=== PATIENT | male | born 1990 | race Caucasian/White ===

== ENCOUNTER 2016-03-26 16:14 | Inpatient (IN) ==
[2016-03-26] MEDS ORDERED: ONDANSETRON 4 MG/2 ML VIAL IV STA (17:03)
[2016-03-26] MEDS ORDERED: NITROGLYCERIN 2% OINT 1 INCH/GM PACK TOP STA (17:03)
[2016-03-26] MEDS ORDERED: ALUM/MAG/SIMETH/LIDO VISC 1:1 30 ML BOTTLE PO STA (17:03)
--- NOTE | 2016-03-26 17:07 | EKG Report ---
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
--- NOTE | 2016-03-26 17:14 | Emergency Department Note ---
Duane Bowers Brittany, am scribing for, and in the presence of, Chaz Prado MD 17:11. Johan Bowers Charles R, MD, personally performed the services described in this documentation, ascribed by Lissy Zepeda in my presence, and it is both accurate and complete 714 . Arrival - Arrival Chief Complaint: Chest Pain Stated Complaint: CHEST PRESSURE/SOB ED Nursing Triage Note: c/o CP and SOB that started today. also states that he has had some chills. +cough, congestion. 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 He states he has been hot and then cold, but denies any diaphoresis. He states this morning he started to cough up clear mucous which had blood in it. He states the chest pain goes into his left shoulder and down to the back of his neck. He denies any blood thinners at this time. Pt has no other complaints/pain in the ED at this time. Pt has a PMHx of HTN, NJ, asthma, and obstructive sleep apnea. Pt has had colonoscopy, tonsilectomy, and cholectstectomy. Pt has a family medical Hx of heart disease. Pt is a former smoker, but denies the use of alcohol and street drugs. Onset (ago): hour(s) (Started 2 hours RIB SAWYER) Consistency: constant Severity: moderate Allergies/Adverse Reactions: Allergies Allergy/AdvReac Type Severity Reaction Status Date / Time aspirin Allergy HIVES Verified 07/16/15 16:25 codeine Allergy HIVES Verified 07/16/15 16:25 Sulfa (Sulfonamide Allergy HIVES Verified 07/16/15 16:25 Antibiotics) Home Medications: Home Medications Medication Instructions Recorded Confirmed Type Tiotropium Inhalation [Spiriva 18 mcg INH Q4H PRN 03/26/16 03/26/16 History Handihaler] Review of System - Review of System 12 point system: reviewed and no additional remarkable complaints except as stated - Review of System Constitutional: Present: chills, fever. Absent: diaphoresis Respiratory: Present: cough Cardiovascular: Present: chest pain, dyspnea on exertion Gastrointestinal: Absent: nausea Medical,Surgical,& Family Hx - Medical History Cardio: History of: Hypertension, NJ (x 2) No history of: CAD Endocrine: No history of: Diabetes Mellitus (IDDM), Diabetes Mellitus (NIDDM), Thyroid Disorder Respiratory: History of: Asthma, Obstructive Sleep Apnea Renal: No history of: Renal Problems Gastrointestinal: No history of: Gastrointestinal Bleed, Liver Problems, GI Problems Musculoskeletal: No history of: Back/Neck Problems - Surgical History Cardiac Surgeries: Patient Denies: Cardiac Catheterization HEENT Surgeries: Surgical HX of: Tonsilectomy & Adenoidectomy Abdominal Surgeries: Surgical HX of: Cholecystectomy, Colonoscopy Patient denies: Appendectomy, EGD - Family History Family History: Reports;: Family Heart Disease - Social History Smoking Status: Former smoker Frequency of Alcohol Use: None Type of Drug Use: None Exam Vital Signs: Vital Signs Temperature 96.6 F L 03/26/16 17:59 Pulse Rate 97 H 03/26/16 17:59 Respiratory Rate 19 03/26/16 17:59 Blood Pressure 148/81 03/26/16 17:59 O2 Sat by Pulse Oximetry 98 03/26/16 17:31 - General General appearance: alert, in no apparent distress, obese (Morbidly obese) - Head Head exam: Present: atraumatic, normocephalic, normal inspection - Eye Eye exam: Present: normal appearance, PERRL, EOMI - ENT ENT exam: Present: normal exam, normal oropharynx, mucous membranes moist - Neck Neck exam: Present: normal inspection, full ROM, trachea midline. Absent: tenderness, thyromegaly - Chest Chest inspection: Present: normal inspection, symmetric chest wall rise. Absent : tenderness, rash, abscess - Respiratory Respiratory exam: Present: normal lung sounds bilaterally. Absent: prolonged expiratory phase, rales, respiratory distress, rhonchi, stridor, wheezes - Cardiovascular Cardiovascular exam: Present: tachycardia, normal heart sounds - Abdominal Exam Abdominal exam: Present: soft, normal bowel sounds. Absent: distention, tenderness, guarding, rebound, rigidity - Extremities Exam Extremities exam: Present: normal capillary refill, pedal edema (+1 pedal edema) . Absent: joint swelling, calf tenderness - Back Exam Back exam: Present: normal inspection, full ROM. Absent: tenderness, muscle spasm, rashes - Neurological Exam Neurological exam: Present: alert, oriented X3, CN II-XII intact, normal gait, reflexes normal. Absent: motor sensory deficit - Psychiatric Psychiatric exam: Present: normal affect, normal mood. Absent: depressed, agitated, anxious - Skin Skin exam: Present: warm, dry, intact, normal color. Absent: rash, cyanosis, diaphoresis, erythema Course - Consultations Consultation #1: Hospitalist will admit patient Time: 18:42 Results - Labs CBC & BMP: 03/26/16 17:10 03/26/16 17:10 Lab Results: I have reviewed the patients labs Disposition Clinical Impression: Chest pain, MACHELLE (obstructive sleep apnea), angina, Pickwickian syndrome Case discussed with: patient, patient's family Disposition: Still a Patient Condition: Stable Time of Disposition: 18:43
[2016-03-26] MEDS ORDERED: ONDANSETRON 4 MG/2 ML VIAL ONE (17:43)
[2016-03-26] MEDS ORDERED: NITROGLYCERIN 2% OINT 1 INCH/GM PACK TOP ONE (17:43)
[2016-03-26 17:44] LABS: Basophils % 0.3 % (0.0-0.8); Eosinophils # 0.2 10*3/uL (0.0-0.87); Eosinophils % 1.8 % (0.00-10.9); Hematocrit 43.3 VOL% (42.0-52.0); Immature Granulocytes % 0.3 %; Immature Granulocytes Absolute 0.04 #; Lymphocytes # 3.2 10*3/uL (1.4-4.0); Lymphocytes % 26.1 % (21.2-54.2); Mean Corpuscular HGB Conc 32.3 GM/DL (32-36); Mean Corpuscular Hemoglobin 27 PG (27-34); Mean Corpuscular Volume 83.3 FL (87-102); Mean Platelet Volume 9.3 FL (9.6-12.0); Monocytes # 0.9 10*3/uL (0.11-0.8); Monocytes % 7.1 % (1.7-12.7); Neutrophils % 64.4 % (38.7-73.9); Platelet Count 305 T/CUMM (130-400); Red Cell Distribution Width 13.8 % (9.3-17.3); White Blood Count 12.4 T/CUMM (4-12)
[2016-03-26 17:44] LABS: Apearance,Urine CLEAR (Clear); Bilirubin,Urine Negative (Negative); Blood, Urine Negative (Negative); Calcium Oxalate Crystals,Urine Moderate /HPF (Few); Glucose,Urine (UA) Negative (Negative); Ketones,Urine Negative (Negative); Mucus,Urine Occasional /LPF (Occasional); Nitrite,Urine Negative (Negative); Protein,Urine Negative; Urine Color Yellow (Yellow); Urine Specific Gravity 1.019 (1.001-1.035); Urine Urobilinogen < 2.0 EU/DL (0.2-1.0)
[2016-03-26] MEDS ORDERED: ALUM/MAG/SIMETH/LIDO VISC 1:1 30 ML BOTTLE PO ONE (17:44)
[2016-03-26 17:50] LABS: Barbiturates Screen,Urine Negative (Negative); Benzodiazepines Screen,Urine Negative (Negative); Cannabinoid Screen,Urine Negative (Negative); Opiate Screen,Urine Negative (Negative); Phencyclidine Screen,Urine Negative (Negative)
--- NOTE | 2016-03-26 17:52 | XRay Report ---
Portable chest Date:[03/26/2016] Clinical history: Chest pain Comparison: 05/04/2014 Technique: Portable AP sitting chest Findings: The heart is minimally enlarged. Minimal atelectasis at the lung bases. Stable mediastinum with no acute osseous findings. Impression: Minimal cardiomegaly with minimal atelectasis at the lung bases. PROCEDURE INTERPRETED AT [facility] DEPARTMENT OF RADIOLOGY Final Report Signed by: Dr. Rere Rogers
[2016-03-26 17:55] LABS: D-Dimer <= 0.5 MG/L FEU; PT Patient Result 10.2 SECS
[2016-03-26 18:04] LABS: Alanine Aminotransferase 23 U/L (16-61); Albumin 3.2 G/DL (3.4-5.0); Alkaline Phosphatase 120 U/L (45-117); Aspartate Amino Transferase 18 U/L (0-37); Bilirubin,Total < 0.39 MG/DL (0.2-1.0); Blood Urea Nitrogen 13 MG/DL (7-18); Calcium 9.1 MG/DL (8.5-10.1); Glucose 85 MG/DL (74-106); Magnesium 2.2 MG/DL (1.8-2.4); Osmolality,Calculated 281.1 MOS/KG (273-304); Potassium 3.8 MMOL/L (3.5-5.1); Sodium 142 MMOL/L (136-145); Total Protein 7.6 G/DL (6.4-8.3)
[2016-03-26] MEDS ORDERED: IPRATROPIUM 500 MCG/2.5 ML NEB RESP TX PRN (19:56)
[2016-03-26] MEDS ORDERED: ACETAMINOPHEN 325 MG TABLET PO PRN (19:57)
[2016-03-26] MEDS ORDERED: BISACODYL 5 MG TABLET PO PRN (19:57)
[2016-03-26] MEDS ORDERED: MORPHINE 2 MG/1 ML SYRINGE IV PRN (19:57)
--- NOTE | 2016-03-26 20:05 | Hospitalist History & Physical ---
Assessment and Plan (1) Atypical chest pain Status: Acute Current Visit: Yes (2) Abdominal pain Status: Acute Current Visit: Yes (3) Morbid obesity Status: Acute Current Visit: Yes (4) Hematochezia Status: Acute Current Visit: Yes (5) History of DC (myocardial infarction) Status: Acute Assessment and plan: Plan: Cardiac workup negative thus far. We'll obtain a CT abdomen and pelvis given his history of bloody stool, current abdominal pain and, history of being told he may have Crohn's disease. He's also had subjective fever. We'll check serial cardiac enzyme in the meantime. Start Cipro and Flagyl given his mildly abnormal white count. These can be stopped if CT and clinical evolution is unrevealing. If patient truly has chest discomfort, may obtain stress test at that time. His pain seems to be more epigastric and abdominal in nature however. Current Visit: Yes History of Present Illness Chief complaint: epigastric/chest/abdomen pain, subjective fever History of present illness: Mr. Figueroa is a 25 year old male who is morbidly obese, denies history of hypertension and diabetes. He states that he had "2 heart attacks," he was living in [place] about 2 years ago. Apparently at that time he never had a left heart cath and does not recall being diagnosed with congestive heart failure. He states he wasn't put on any medications. He believes he is seen Yolanda Queen since he is moved back to [place]. He does not relax time he had an echo. Additionally he states he had subjective fever and sweats today along with nausea and vomiting. He also relates a history of intermittent hematochezia and had a colonoscopy in the past and was told that he may have the beginning of Crohn's disease. I don't have any record of this. Additionally he is a very strong family history of heart disease, both his mother and father have had her early-onset heart disease with DC and stent, his mother is going for bypass surgery in her 50s. He rates his pain a 6 out of 10 at worst, symptoms are constant. Home Medications Medication Instructions Recorded Confirmed Type Tiotropium Inhalation [Spiriva 18 mcg INH Q4H PRN 03/26/16 03/26/16 History Handihaler] Allergies Allergy/AdvReac Type Severity Reaction Status Date / Time aspirin Allergy HIVES Verified 07/16/15 16:25 codeine Allergy HIVES Verified 07/16/15 16:25 Sulfa (Sulfonamide Allergy HIVES Verified 07/16/15 16:25 Antibiotics) Medical,Surgical,& Family Hx - Medical History Cardio: History of: Hypertension, DC (x 2) No history of: CAD Endocrine: No history of: Diabetes Mellitus (IDDM), Diabetes Mellitus (NIDDM), Thyroid Disorder Respiratory: History of: Asthma, Obstructive Sleep Apnea Renal: No history of: Renal Problems Gastrointestinal: No history of: Gastrointestinal Bleed, Liver Problems, GI Problems Musculoskeletal: No history of: Back/Neck Problems - Surgical History Cardiac Surgeries: Patient Denies: Cardiac Catheterization HEENT Surgeries: Surgical HX of: Tonsilectomy & Adenoidectomy Abdominal Surgeries: Surgical HX of: Cholecystectomy, Colonoscopy Patient denies: Appendectomy, EGD - Family History Family History: Reports;: Family Heart Disease - Social History Smoking Status: Former smoker Have you smoked in the last 12 months: No Frequency of Alcohol Use: None Type of Drug Use: None Marital Status: Unknown Functional capacity: independent ambulation Review of systems: A 12 point review of systems is negative except as specified in the HPI Exam - Constitutional Vitals: Period Temp Pulse Resp BP Sys/Ochoa Pulse Ox Last 24 Hr 96.6 F-96.6 F 91-100 17-22 112-148/47-81 96-99 Exam: EXAM: CONSTITUTIONAL: Morbidly obese non toxic, NAD HEENT: NC, AT, OP benign, MIRNA, EOMI CV: RRR no m/g/r, distant heart sounds due to body habitus RESP: clear B/L, no w/r/r GI: abd soft, epigastric and midabdominal tenderness to palpation, no rebound, ND, +bowel sounds INTEGUMENTARY: no lesions or rash EXTREMITIES: no c/c/e NEURO: no focal deficits PSYCH: unremarkable, A/O x3 Results - Labs CBC & BMP: 03/26/16 17:10 03/26/16 17:10 Lab Results: I have reviewed the past 24 hour labs - EKG EKG shows: tachycardia, sinus rhythm - Diagnostic Findings Procedure: CT Abdomen and Pelvis: pending Quality Measures - VTE Contraindication to Pharmacological VTE Prophylaxis: High Risk of Bleeding
--- NOTE | 2016-03-26 21:59 | CT Report ---
Exam: CT abdomen pelvis w con Date: 03/26/2016 7:56 PM Comparison: 11/29/2013 Indication: Generalized abdominal pain, bloody diarrhea, fever Technique: Sequential axial scans of the abdomen and pelvis were obtained following the ingestion of oral contrast and injection of 100 cc of Omnipaque 350. Coronal and sagittal 2-D reconstructions were obtained. Total DLP: 4104.40 Findings: No acute findings at the visualized lung bases. The heart is minimally enlarged cardiac fat pads. Fatty infiltration of liver with no masses or dilated ducts in patient with prior cholecystectomy. The spleen is borderline size to minimally enlarged. The pancreas, adrenal glands, and kidneys are stable in appearance. No renal or ureteral calculi are identified. The abdominal aorta is normal in size with no adjacent adenopathy. No dilatation of the small bowel. Limited oral contrast in the distal colon with possible mild diffuse wall thickening. Increased fat density noted at the level of the ileocecal valve. No evidence of diverticulitis, appendicitis, free air, or free fluid. The prostate measures 34 mm in diameter with calcification. The urinary bladder appears more contracted. Degenerative changes are noted with chronic sclerosis and cystic findings in the left symphysis pubis. Impression: Increased fat deposition. Cardiac fat pads with fatty infiltration of the liver with prior cholecystectomy. The spleen is borderline size to minimally enlarged. Progressive fat density at the level of the ileocecal valve which makes it difficult to exclude a lipoma. No evidence of appendicitis. Limited oral contrast in the distal colon with diffuse wall thickening which can be seen with colitis, inflammatory bowel disease, artifactual finding, etc. PROCEDURE INTERPRETED AT [facility] DEPARTMENT OF RADIOLOGY Final Report Signed by: Dr. Rere Rogers
[2016-03-26] MEDS: metroNIDAZOLE INJ 500 MG in PREMIX 1 EACH IV SCH (22:31)
[2016-03-26] MEDS: CIPROFLOXACIN INJ 400 MG in PREMIX 1 EACH IV SCH (22:42)
[2016-03-27] MEDS: metroNIDAZOLE INJ 500 MG in PREMIX 1 EACH IV SCH ×3 (04:28→20:50)
[2016-03-27 06:28] LABS: Basophils % 0.4 % (0.0-0.8); Eosinophils # 0.1 10*3/uL (0.0-0.87); Eosinophils % 1.5 % (0.00-10.9); Hematocrit 40.9 VOL% (42.0-52.0); Hemoglobin 13.3 GM/DL (14.0-18.0); Immature Granulocytes % 0.4 %; Immature Granulocytes Absolute 0.04 #; Lymphocytes # 2.5 10*3/uL (1.4-4.0); Lymphocytes % 26.3 % (21.2-54.2); Mean Corpuscular HGB Conc 32.5 GM/DL (32-36); Mean Corpuscular Hemoglobin 27 PG (27-34); Mean Platelet Volume 9.5 FL (9.6-12.0); Monocytes # 0.6 10*3/uL (0.11-0.8); Monocytes % 6.4 % (1.7-12.7); Neutrophils # 6.1 10*3/uL (1.4-7.4); Platelet Count 290 T/CUMM (130-400); Red Blood Count 4.99 MC/CUMM (3.8-5.5); Red Cell Distribution Width 14.2 % (9.3-17.3); White Blood Count 9.3 T/CUMM (4-12)
[2016-03-27 07:06] LABS: Bilirubin,Total 0.5 MG/DL (0.2-1.0); Calcium 8.5 MG/DL (8.5-10.1); Osmolality,Calculated 281.1 MOS/KG (273-304); Potassium 4.2 MMOL/L (3.5-5.1); Risk Ratio 2.57; Thyroid Stimulating Hormone 3.12 uIU/ml (0.358-3.74); Total Protein 6.7 G/DL (6.4-8.3); VLDL CHOLESTEROL 11.8 MG/DL
[2016-03-27] MEDS: CIPROFLOXACIN INJ 400 MG in PREMIX 1 EACH IV SCH ×2 (08:22→22:07)
[2016-03-27] MEDS: PANTOPRAZOLE 40 MG TABLET PO SCH (08:23)
--- NOTE | 2016-03-27 14:13 | Hospitalist Progress Note ---
Assessment and Plan (1) Abdominal pain Status: Acute Assessment and plan: CT abd/ pelvis showed diffuse wall thickening which can be seen with colitis, IBD. -pain is improving Plan -continue with IVF, pain meds and IV antibiotics -follow BC Current Visit: Yes (2) Morbid obesity Status: Acute Assessment and plan: Dietitian consult Current Visit: Yes (3) Atypical chest pain Status: Acute Assessment and plan: Cardiac enzymes are negative, D-dimer is normal, chest pain has resolved Current Visit: Yes (4) HTN (hypertension) Status: Acute Current Visit: Yes Hospitalist: Subjective Interval history: patient seen. He states he feels better. He longer has chest pain but still hurt a little bit in his belly. Exam - Constitutional Vitals: Period Temp Pulse Resp BP Sys/Ochoa Pulse Ox Last 24 Hr 97.3 F-98.3 F 83-92 16-18 112-137/49-83 93-100 General appearance: no acute distress, morbidly obese - Respiratory Respiratory exam: Present: clear to auscultation bilaterally - Cardiovascular Cardiovascular exam: Present: regular rate and rhythm - GI/Abdominal GI/Abdominal exam: Present: normal bowel sounds - Extremities Exam Extremities exam: Present: normal inspection Results - Labs CBC & BMP: 03/27/16 05:50 03/27/16 05:50 Lab Results: I have reviewed the past 24 hour labs Quality Measures - VTE Contraindication to Pharmacological VTE Prophylaxis: High Risk of Bleeding
[2016-03-27 15:59] LABS: Troponin I Only < 0.015 NG/ML (0.00-0.045)
[2016-03-27] MEDS: ONDANSETRON 4 MG/2 ML VIAL IV PRN (19:37)
[2016-03-28] MEDS: metroNIDAZOLE INJ 500 MG in PREMIX 1 EACH IV SCH ×2 (04:48→13:41)
[2016-03-28] MEDS: PANTOPRAZOLE 40 MG TABLET PO SCH (09:46)
[2016-03-28] MEDS: CIPROFLOXACIN INJ 400 MG in PREMIX 1 EACH IV SCH (09:47)
[2016-03-28] MEDS: ONDANSETRON 4 MG/2 ML VIAL IV PRN (10:00)
--- NOTE | 2016-03-28 13:42 | Discharge Summary ---
Hospital Course - Hospital Course Hospital Course: Mr. Figueroa is a 25 year old male who is morbidly obese, with no history of hypertension and diabetes. He presents with atypical chest pain,diarrhoea, abdominal pain.Upon arrival, CT abd/ pelvis showed diffuse wall thickening which can be seen with colitis, IBD.cardiac enzymes were negative. He was admitted, started on IV flagyl and Cipro.His stool was negative for C.difficile, occult blood and enteric pathogen.UC was negative.He was also given some IV pain meds. D-DIMER was negative.Electrolytes were fine, symptoms improved, he was tolerationg po,vitals are stable, he feels good and wants to go home. He also requests for time off work till Saturday. - Time spent with patient Time with patient DS: Greater than 30 minutes Diagnosis - Discharge Diagnosis (1) Abdominal pain Status: Acute (2) Morbid obesity Status: Acute (3) Atypical chest pain Status: Acute (4) HTN (hypertension) Status: Acute Discharge Plan - Discharge Data Disposition: Disch To Home/Self Care Condition at Discharge: Stable Discharge Diet: advance to your usual diet Activity: resume usual activities as tolerated - Discharge Medications New HYDROcodone/ACETAMIN 5-325 [[place] 5-325] 1 tablet PO Q4H PRN #20 tablet PRN Reason: Pain Mild (1-3) Acetaminophen Tab [Tylenol Tab] 325 mg PO Q4H PRN #0 tablet PRN Reason: fever, headache/body aches Ciprofloxacin Tab [Cipro Tab] 500 mg PO BID #14 tablet Pantoprazole Tab [Protonix Tab] 40 mg PO DAILY #30 tablet metroNIDAZOLE TAB [Flagyl Cap/Tab] 500 mg PO TID #20 tablet Continue Tiotropium Inhalation [Spiriva Handihaler] 18 mcg INH Q4H PRN PRN Reason: Shortness Of Breath - Follow Up or Referral - Forms/Instructions Additional Discharge Instructions: Follow with PCP in 1week Exam - Constitutional Vitals: Period Temp Pulse Resp BP Sys/Ochoa Pulse Ox Last 24 Hr 97.7 F-97.9 F 78-86 16-19 94-115/47-64 92-97 General appearance: no acute distress, morbidly obese - Head Head exam: Present: normal inspection - Neck Neck exam: Present: normal inspection - Respiratory Respiratory exam: Present: clear to auscultation bilaterally - Cardiovascular Cardiovascular exam: Present: regular rate and rhythm - GI/Abdominal GI/Abdominal exam: Present: normal bowel sounds - Extremities Exam Extremities exam: Present: normal inspection Discharge Results Procedures and tests throughout hospitalization: Pending Orders 03/27/16 13:25 Occult Blood, Stool Routine Stool Culture Routine 03/27/16 14:34 Urine Culture Routine 03/27/16 14:47 Blood Culture Routine Labs on day of discharge: Labs from last 24 hours 03/27/16 14:46 Total Creatine Kinase 89 CK-MB (CK-2) 1.3 Troponin I < 0.015 Preliminary micro results at discharge 03/27/16 14:34 Urine Culture - Preliminary Urine,Voided No Growth at 24 hours. 03/27/16 13:25 Stool Culture - Preliminary Stool No enteric pathogens at 12 hrs DS: Provider Date of admission: 03/26/16 19:57 Primary care physician: . No PCP Attending physician on admission: Vivian Urrutia MD Discharging clinician: Vivian Urrutia MD
[2016-03-28 15:32] VITALS: BP 115/74
--- NOTE | 2016-04-03 13:13 | Physician Query Form ---
CLICK EDIT DOCUMENT TO SELECT QUERY ANSWER --> OK --> SIGN Chacha Ryan RN Clinical Bark Scaler W) [phone] (f) [phone] [email or web address] PROVIDERS: Make your selection(s) from the choices in EACH section by typing an "x" and enter comments in the comment section. Please use your independent medical judgment in providing your response. This request does not imply that any particular answer is desired or expected. CLINICAL INDICATORS: (Providers should not edit this section) Based on documentation of "He presents with abdominal pain. CT abd/ pelvis showed diffuse wall thickening which can be seen with colitis, IBD. He was started on IV flagyl and Cipro". Based on the above, could you clarify the appropriate diagnosis, if significant , that supports the above abnormalities and additional evaluation, monitoring, and/or treatment rendered: ( x) Abdominal pain due to colitis ( ) Abdominal pain due to ( ) Other, please specify: ( ) Clinically unable to determine COMMENTS: Use of terms such as suspected, likely, or probable (associated with a specific diagnosis that is being evaluated, monitored, or treated as if it exists) are acceptable and can be restated in the discharge summary if not ruled out. MTDD
== END 2016-03-28 16:30 | disposition home or self-care (01) | DRG 392 ==
LOC: N.ED 16:14 → N.EDINP 19:57 → N.5E 20:43
PROVIDERS: ADMIT Internal Medicine; ATTEND Internal Medicine